=== PATIENT | male | born 1965 | race Caucasian/White ===

== ENCOUNTER 2016-09-23 11:54 | Emergency (ER) | payer BC ==
[~2016-09-23] VITALS: Ht 175.3 cm; Wt 96.5 kg
[~2016-09-23 11:54] MED LIST: ASPIR 8181 M1 PO; BUPROPION XL150 MG PO; CLINDAMYCIN HC300 MG PO; ESCITALOPRAM OX10 MG PO; TEMOVATE 0.05%30 GM TP; TYLENOL REGULA325 MG PO; VALSARTAN-HCTZ1 EAC4 PO; ZOVIRAX5 GM TP
[2016-09-23] MEDS ORDERED: ASPIRIN81 M2 PO (14:29)
[2016-09-23] MEDS ORDERED: PLAVIX75 MG PO (14:29)
[2016-09-23 14:57] VITALS: BP 132/76
== END 2016-09-23 15:05 | disposition home or self-care (01) ==
LOC: EME 11:54
DX: I72.4 Aneurysm of artery of lower extremity (principal); I10 Essential (primary) hypertension; Z79.82 Long term (current) use of aspirin
CPT/HCPCS: 93971; 99281; 99284

== ENCOUNTER → 2016-11-06 | Outpatient (CLI) | payer BC ==
[~2016-11-06] MED LIST changes: +ASPIRIN81 M2 PO; +PLAVIX75 MG PO
== END | disposition home or self-care (01) ==
LOC: NUC 08:16
DX: I51.7 Cardiomegaly (principal); I06.1 Rheumatic aortic insufficiency; R94.31 Abnormal electrocardiogram [ECG] [EKG]; I52 Other heart disorders in diseases classified elsewhere; R07.9 Chest pain, unspecified
CPT/HCPCS: 78452; 93306; A9500; J2785